=== PATIENT | male | born 1945 | race Caucasian/White ===

== ENCOUNTER 2022-05-20 12:27 | Inpatient (IN) | payer OTHER ==
[~2022-05-20] VITALS: Ht 190.5 cm; Wt 155.5 kg
[2022-05-20 13:45] LABS: BASOPHILS ABSOLUTE AUTO 0.03 K/mm3 (0.00-0.23); BASOPHILS PERCENT AUTO 0 % (0-2); EOSINOPHILS PERCENT AUTO 0 % (0-6); Hematocrit 40.7 % (37.0-53.0); Hemoglobin 13.7 g/dL (13.5-17.5); IMMATURE GRAN ABSOLUTE AUTO 0.05 K/mm3 (0.00-0.10); IMMATURE GRAN PERCENT AUTO 0 % (0-1); LYMPHOCYTES ABSOLUTE AUTO 0.43 K/mm3 (0.84-5.20); LYMPHOCYTES PERCENT AUTO 4 % (21-46); MONOCYTES ABSOLUTE AUTO 0.41 K/mm3 (0.16-1.47); MONOCYTES PERCENT AUTO 3 % (4-13); Mean Corpuscular HGB Conc 33.7 g/dL (31.5-36.5); Mean Corpuscular Volume 101 fL (80-100); Mean Platelet Volume 10.8 fL (9.1-12.4); NEUTROPHILS ABSOLUTE AUTO 11.15 K/mm3 (1.96-9.15); NEUTROPHILS PERCENT AUTO 92 % (41-73); Platelet Count 197 K/mm3 (150-400); RDW Coefficient Variation 15.9 % (11.7-14.2); RDW Standard Deviation 59.2 fL (35.1-46.3); Red Blood Cell Count 4.03 M/mm3 (4.30-5.90); White Blood Cell Count 12.07 K/mm3 (4.00-11.30)
[2022-05-20] MEDS ORDERED: ATOR40TA PO (14:38)
[2022-05-20] MEDS ORDERED: METO25ER PO (14:38)
[2022-05-20] MEDS ORDERED: FURO40 PO (14:38)
[2022-05-20] MEDS ORDERED: Hair, Skin & N1 EACH PO (14:38)
[2022-05-20] MEDS ORDERED: ALBU90OI INH (14:39)
[2022-05-20] MEDS ORDERED: ELIQUIS5 M2 PO (14:39)
[2022-05-20] MEDS ORDERED: METF500 PO (14:39)
[2022-05-20 15:05] LABS: Albumin, Blood 2.6 g/dL (3.4-5.0); Albumin/Globulin Ratio 0.6 (0.8-1.8); Bilirubin, Total 7.7 mg/dL (0.1-1.0); Bun/Creatinine Ratio 21.9 (12.0-20.0); Calcium, Blood 8.9 mg/dL (8.5-10.1); Creatinine, Blood 2.65 mg/dL (0.60-1.20); Globulin, Blood 4.4 g/dL (2.2-4.0); Potassium, Blood 4.8 mmol/L (3.5-5.5)
[2022-05-20 15:24] LABS: Creatine Kinase MB 26.1 ng/mL (0.0-3.6); Creatine Kinase MB Index 1.5 (0.0-4.0)
[2022-05-20 23:51] LABS: Albumin, Blood 2.3 g/dL (3.4-5.0); Anion Gap 12 mmol/L (6-16); Blood Urea Nitrogen 64 mg/dL (8-24); Bun/Creatinine Ratio 25.9 (12.0-20.0); CO2, Blood 21 mmol/L (21-32); Calcium, Blood 8.8 mg/dL (8.5-10.1); Chloride, Blood 103 mmol/L (98-108); Creatinine, Blood 2.47 mg/dL (0.60-1.20); Glomerular Filtration Rate 26 (60-); Glucose, Blood 144 mg/dL (70-99); Phosphorus, Blood 3.1 mg/dL (2.5-4.9); Potassium, Blood 4.3 mmol/L (3.5-5.5); Sodium, Blood 136 mmol/L (136-145)
[2022-05-21 04:09] LABS: Source, Urine Clean Catch
[2022-05-21 04:15] LABS: Blood, Urine 4+ (Neg); Glucose Qualitative, Urine Neg (Neg); Ketones, Urine 1+ (Neg); Leukocyte Esterase, Urine 1+ (Neg); Nitrite, Urine Neg (Neg); Protein, Urine 2+ (Neg); Urobilinogen, Urine 3+ (Normal)
--- NOTE | 2022-05-21 04:32 | NUR ---
CONTACTED THE HOSPITALIST REGARDING PT'S CONTINUED LOW BP WITH MOST RECENT MANUAL AT 76/50. NO SIGNIFICANT CHANGE IN PATIENT MENTATION AT THIS TIME. HOSPITALIST PUT IN ORDERS FOR 500 CC BOLUS. INFORMED OF PT'S HISTORY. TELEPHONE ORDER OBTAINED FOR ANOTHER 500 CC WITH NO IMPROVEMENT IN BP.
[2022-05-21 04:37] LABS: Appearance, Urine Hazy (Clear); Bilirubin, Urine 1+ (Neg); Color, Urine Amber (P-Yellow)
[2022-05-21 04:38] LABS: Amorphous Light (0-Heavy); Bacteria Few /hpf; Squamous Epithelial Cells Few /hpf (Few)
--- NOTE | 2022-05-21 04:56 | NUR ---
REPORT TO ADAM IN PCU. PT TRANSFERRED BY HOSPITAL BED BY RN AND [employer] ELECTRICAL ENGINEER. PT SLID TO PCU BED.
[2022-05-21 05:23] LABS: BASOPHILS ABSOLUTE AUTO 0.04 K/mm3 (0.00-0.23); BASOPHILS PERCENT AUTO 0 % (0-2); EOSINOPHILS ABSOLUTE AUTO 0.02 K/mm3 (0.00-0.68); EOSINOPHILS PERCENT AUTO 0 % (0-6); Hematocrit 36.4 % (37.0-53.0); Hemoglobin 12.5 g/dL (13.5-17.5); IMMATURE GRAN ABSOLUTE AUTO 0.05 K/mm3 (0.00-0.10); IMMATURE GRAN PERCENT AUTO 1 % (0-1); LYMPHOCYTES ABSOLUTE AUTO 0.39 K/mm3 (0.84-5.20); LYMPHOCYTES PERCENT AUTO 4 % (21-46); MONOCYTES ABSOLUTE AUTO 0.25 K/mm3 (0.16-1.47); MONOCYTES PERCENT AUTO 3 % (4-13); Mean Corpuscular HGB 33.9 pg (26.0-34.0); Mean Corpuscular HGB Conc 34.3 g/dL (31.5-36.5); Mean Corpuscular Volume 99 fL (80-100); Mean Platelet Volume 10.6 fL (9.1-12.4); NEUTROPHILS ABSOLUTE AUTO 9.16 K/mm3 (1.96-9.15); NEUTROPHILS PERCENT AUTO 93 % (41-73); Platelet Count 168 K/mm3 (150-400); RDW Coefficient Variation 15.7 % (11.7-14.2); RDW Standard Deviation 56.8 fL (35.1-46.3); Red Blood Cell Count 3.69 M/mm3 (4.30-5.90); White Blood Cell Count 9.91 K/mm3 (4.00-11.30)
[2022-05-21 05:44] LABS: Calcium, Blood 8.5 mg/dL (8.5-10.1); Creatinine, Blood 2.36 mg/dL (0.60-1.20); Potassium, Blood 4.2 mmol/L (3.5-5.5)
--- NOTE | 2022-05-21 06:30 | NUR ---
SHIFT SUMMARY/TRANSFER PT TO ROOM WITH JON Seay RN. AXO. BP STABLE, SOMEWHAT SOFT. PT FINISHING FIRST 500ML BOLUS. IV BLOWN WITH HEMATOMA TO SITE, UNKNOWN HOW LONG. IV PULLED. NEW ONE INSERTED. PT ON RA. LUNGS CLEAR T/O. TELE SHOWS AFIB, BBB, PVC'S. BED BATH GIVEN. PT WITH BRUISING T/O BODY AND MULTIPLE WOUNDS, PICTURES TO CHART. WOUNDS CLEANSED. 2ND NS BOLUS STARTED AT 500MLS/HR DUE TO RISING BP AND PT'S BNP. OTHERWISE, PT RESTING. JON Seay TO FINISH ADMISSION PROCESS. BED ALARM ON. PT ORIENTED TO PCU ROOM AND PROCEDURES.
[2022-05-21] MEDS ORDERED: LOSA50 PO ×2 (16:04→16:05)
--- NOTE | 2022-05-21 17:42 | NUR ---
SHIFT SUMMARY PT A/O X4 ND COOPERATIVE OF CARE. BP'S SOFT WITH SYSTOLIC PRESSURE RANGING 80-100'S. OTHER VSS THROUGHOUT SHIFT WITH O2 SATS >96% ON RA. NO REPORT OF CHEST PAIN/PRESSURE THROUGHOUT SHIFT. NO REPORT OF SOB/DYSPNEA THROUGHOUT SHIFT. PT SEEN BY PT/OT, PT STOOD UP AT THE BEDSIDE WITH PT/OT AND THIS RN PRESENT FOR ASSISTANCE, EDUARDO ELLSWORTH. PT STOOD FOR A FEW MINUTES BEFORE BECOMING TIRED AND SITTING ON HIS OWN ON EDGE OF BED. PT REORTS "I FELL SO MUCH BETTER TODAY. YESTERDAY I COULD NOT FOCUS AND READ WHAT IS ON THE BOARD." MEDICATION LIST AND [facility], DOCUMENTS IN CHART.
--- NOTE | 2022-05-21 21:49 | NUR ---
CARE ASSUMPTION: BEDSIDE REPORT GIVEN BY DOUGLAS FERRARA. PATIENT A&O X4, MAP >65, AND O2 >95% RA. ALBUMIN INFUSING TO LEFT FOREARM IV. PATIENT PLEASANT AND COOPERATIVE, DENIED SOB, CHEST PAIN, OR OTHER DISCOMFORT. PATIENT STATED HE WAS STILL WORKING ON DINNER BUT "PROBABLY WON'T EAT THE ZUCCHINI." PATIENT HAD 17 SEC VTACH RUN AT 2020. BED LOW WITH CALL LIGHT IN REACH.
[2022-05-22 04:15] LABS: BASOPHILS ABSOLUTE AUTO 0.04 K/mm3 (0.00-0.23); BASOPHILS PERCENT AUTO 1 % (0-2); EOSINOPHILS PERCENT AUTO 0 % (0-6); Hematocrit 36.2 % (37.0-53.0); Hemoglobin 12.4 g/dL (13.5-17.5); IMMATURE GRAN ABSOLUTE AUTO 0.04 K/mm3 (0.00-0.10); IMMATURE GRAN PERCENT AUTO 1 % (0-1); LYMPHOCYTES ABSOLUTE AUTO 0.52 K/mm3 (0.84-5.20); LYMPHOCYTES PERCENT AUTO 6 % (21-46); MONOCYTES ABSOLUTE AUTO 0.24 K/mm3 (0.16-1.47); MONOCYTES PERCENT AUTO 3 % (4-13); Mean Corpuscular HGB 33.6 pg (26.0-34.0); Mean Corpuscular HGB Conc 34.3 g/dL (31.5-36.5); Mean Corpuscular Volume 98 fL (80-100); Mean Platelet Volume 10.5 fL (9.1-12.4); NEUTROPHILS ABSOLUTE AUTO 7.34 K/mm3 (1.96-9.15); NEUTROPHILS PERCENT AUTO 90 % (41-73); Platelet Count 173 K/mm3 (150-400); RDW Coefficient Variation 15.8 % (11.7-14.2); RDW Standard Deviation 56.5 fL (35.1-46.3); Red Blood Cell Count 3.69 M/mm3 (4.30-5.90); White Blood Cell Count 8.18 K/mm3 (4.00-11.30)
[2022-05-22 04:34] LABS: Albumin, Blood 2.4 g/dL (3.4-5.0); Albumin/Globulin Ratio 0.6 (0.8-1.8); Bilirubin, Total 7.5 mg/dL (0.1-1.0); Bun/Creatinine Ratio 33.2 (12.0-20.0); Calcium, Blood 8.6 mg/dL (8.5-10.1); Creatinine, Blood 2.17 mg/dL (0.60-1.20); Globulin, Blood 3.8 g/dL (2.2-4.0); Magnesium, Blood 2.4 mg/dL (1.6-2.4); Total Protein, Blood 6.2 g/dL (6.4-8.2)
--- NOTE | 2022-05-22 05:02 | NUR ---
SHIFT SUMMARY: PATIENT A&O X4, BP SOFT, MAP >60, O2 SAT >97% RA/CPAP. DENIES CHEST PAIN, SOB, N/V/D. PATIENT HAD 17 SEC RUN OF VTACH - ASYMPTOMATIC. PATIENT STATES FEELING "MUCH BETTER" TODAY WITH IMPROVED ROM IN NECK AND ARMS AND "CAN SEE THE BOARD TODAY." PATIENT PLEASANT AND COOPERATIVE WITH CARE. DECLINES ELEVATING LEGS ON PILLOW. EXTREMETIES ARE STILL EDEMATOUS AND PATIENT REPORTS PAIN WHEN MOVING RIGHT LEG FOR REPOSITIONING BUT OTHERWISE DENIES PAIN. BED LOW WITH CALL LIGHT IN REACH. WILL CONTINUE TO MONITOR AND REPORT TO ONCOMING RN.
[2022-05-22 09:05] LABS: International Normalized Ratio 1.81; Prothrombin Time Results 18.3 Sec (9.7-11.5)
--- NOTE | 2022-05-22 18:33 | NUR ---
SHIFT SUMMARY PT A/O AND COOPERATIVE OF CARE. PT BP'S SOFT WITH SYSTOLIC PRESSURES IN THE 90-100'S. OTHER VSS THROUGHOUT SHIFT WOTH O2 SATS > 97% ON RA. PT BLOOD SUGAR LEVELS GRADUALLY INCREASED THROUGHOUT SHIFT, DR SYKES AND LOW SLIDING SCALE OREDERED. PT REPORTED FEELING "PRETTY WELL" DURING MORNING ASSESSMENT, REPORTS "FEELING WORSE THAN I DID YESTERDAY," TOWARDS END OF SHIFT. WHEN ASKED WHAT IS MAKING HIM FEEL WORSE, PT ANSWERED "MY LOWER BACK IS HURTING ME." PAIN TREATED PER EMAR. NO REPORT OF CHEST PAIN/PRESSURE THOUGHOUT SHIFT. NO REORT OF SOB/DYSPNEA THROUGHOUT SHIFT. PT EXPRESSED CONCERNS OF URINATING IN HIS BED DUE TO LASIX, WILL FORWARD TO NOC RN. LAB REPORTED PT BLOODWORK WAS POSITIVE FOR GRAM + COCCI IN CLUSTERS, DR SYKES, [facility].
--- NOTE | 2022-05-22 19:45 | NUR ---
CARE ASSUMPTION: PATIENT IN BED WITH LEGS ON PILLOWS. RLE MORE SWOLLEN THAN THIS AM AND PATIENT REPORTS PAIN IN BACK THAT ISN'T RELIEVED WITH TYLENOL. LLE HAS NEW BLISTERING. NEW ORDERS FOR LASIX AND GUERRA CATHETER. RECEIVED REPORT FROM DOUGLAS FERRARA. BED LOW WITH CALL LIGHT IN REACH.
[2022-05-22 22:56] LABS: Source, Urine Foley catheter
[2022-05-22 23:06] LABS: Blood, Urine 1+ (Neg); Glucose Qualitative, Urine Neg (Neg); Ketones, Urine 1+ (Neg); Leukocyte Esterase, Urine 1+ (Neg); Nitrite, Urine Neg (Neg); Protein, Urine 2+ (Neg); Specific Gravity, Urine 1.015 (1.003-1.022); Urobilinogen, Urine 3+ (Normal)
[2022-05-22 23:15] LABS: Bilirubin, Urine 2+ (Neg)
[2022-05-22 23:16] LABS: Appearance, Urine Hazy (Clear); Color, Urine Amber (P-Yellow)
[2022-05-22 23:17] LABS: Amorphous Mod (0-Heavy); Bacteria Few /hpf; Red Blood Cells, Urine 0-2 /hpf (0-2); Squamous Epithelial Cells Rare /hpf (Few)
[2022-05-23 04:28] LABS: BASOPHILS ABSOLUTE AUTO 0.02 K/mm3 (0.00-0.23); BASOPHILS PERCENT AUTO 0 % (0-2); EOSINOPHILS ABSOLUTE AUTO 0.05 K/mm3 (0.00-0.68); EOSINOPHILS PERCENT AUTO 1 % (0-6); Hematocrit 32.3 % (37.0-53.0); Hemoglobin 11.3 g/dL (13.5-17.5); IMMATURE GRAN ABSOLUTE AUTO 0.09 K/mm3 (0.00-0.10); IMMATURE GRAN PERCENT AUTO 1 % (0-1); LYMPHOCYTES ABSOLUTE AUTO 0.56 K/mm3 (0.84-5.20); LYMPHOCYTES PERCENT AUTO 7 % (21-46); MONOCYTES ABSOLUTE AUTO 0.31 K/mm3 (0.16-1.47); MONOCYTES PERCENT AUTO 4 % (4-13); Mean Corpuscular HGB 33.7 pg (26.0-34.0); Mean Corpuscular Volume 96 fL (80-100); Mean Platelet Volume 10.7 fL (9.1-12.4); NEUTROPHILS ABSOLUTE AUTO 7.47 K/mm3 (1.96-9.15); NEUTROPHILS PERCENT AUTO 88 % (41-73); Platelet Count 146 K/mm3 (150-400); RDW Coefficient Variation 15.2 % (11.7-14.2); Red Blood Cell Count 3.35 M/mm3 (4.30-5.90)
[2022-05-23 04:49] LABS: Albumin, Blood 2.4 g/dL (3.4-5.0); Albumin/Globulin Ratio 0.7 (0.8-1.8); Bilirubin, Total 7.5 mg/dL (0.1-1.0); Bun/Creatinine Ratio 38.9 (12.0-20.0); Calcium, Blood 8.5 mg/dL (8.5-10.1); Creatinine, Blood 2.11 mg/dL (0.60-1.20); Globulin, Blood 3.5 g/dL (2.2-4.0); Potassium, Blood 3.8 mmol/L (3.5-5.5); Total Protein, Blood 5.9 g/dL (6.4-8.2)
--- NOTE | 2022-05-23 05:30 | NUR ---
SHIFT SUMMARY: PATIENT DENIES SOB, CHEST PAIN, N/V/D. SYSTOLIC BP 90S, MAP>65, AFEBRILE. O2 SATS >92% RA. GUERRA DRAINING BRETT URINE TO GRAVITY. MEDICATED PER EMAR. PATIENT HAD ASYMPTOMATIC 18 SEC RUN OF VTACH WHILE SLEEPING ~2200. NO OTHER ADVERSE EVENTS. PATIENT DECLINED CPAP WHILE SLEEPING. PATIENT ALSO DECLINED MOVING TO RECLINER OR HAVING LEGS ELEVATED WITH PILLOWS. PATIENT PLEASANT AND COOPERATIVE WITH CARE. BED LOW WITH CALL LIGHT IN PLACE. WILL CONTINUE TO MONITOR AND REPORT TO ONCOMING RN.
[2022-05-23 13:09] LABS: Magnesium, Blood 2.5 mg/dL (1.6-2.4)
--- NOTE | 2022-05-23 18:06 | NUR ---
SHIFT SUMMARY PT A/O X3-4, SOME CONFUSION AT TIMES. PT COOPERATIVE OF CARE AND CALLED APPROPIATE. BP'S SOFT DUING SHIFT WITH SBP RANGING 90-100'S. MIDODRINE AND METOPROLOL ADJUSTED, SEE EMAR. OTHER VSS THROUGHOUT SHIFT WITH O2 SATS IN THE 90'S ON RA. NO REPORT OF CHEST PAIN/PRESSURE THROUGHOUT SHIFT. PT REPORTED SOB WHEN TRYING TO AMBULATE WITH PHYSICAL THERAPY, SATS STABLE. PT REPORTED THAT HE "FEELS GOOD TODAY" BUT WAS UNABLE TO STAND AT BEDSIDE TODAY WITH THERAPY. GUERRA IN PLACE DRAINING TO GRAVITY, DARL BRETT URINE. PT HAD X-RAY DONE ON RIGHT SHOULDER AND RIGHT KNEE, SEE CHARTS.
--- NOTE | 2022-05-23 19:56 | NUR ---
ASSUMED CARE OF PATIENT AT APPROXIMATELY 1905 FROM ALEM Ortiz RN. PATIENT DROWSY; WAKES TO VERBAL STIMULUS; DINNER TRAY PARTIALLY EATEN AND PATIENT REPORTS HE IS SLOW EATER AND STILL WORKING ON IT. PATIENT SNORING WITH EYES CLOSED WHEN STAFF NOT IN ROOM. BEDREST; Q2H TURNS. PATIENT WEAK. AFIB ON TELE; BP SOFT AT TIMES PER REPORT. OXYGEN SATURATION ABOVE 90% ON ROOM AIR. PIV S/L. SMALL AMOUNT OF DARK BRETT URINE NOTED IN CATHETER BAG.
[2022-05-24 00:07] LABS: HBSAG SCREEN Negative (Negative); HCV AB <0.1 (0.0-0.9); HEP A AB, IGM Negative (Negative); HEP B CORE AB, IGM Negative (Negative)
[2022-05-24 04:10] LABS: BASOPHILS ABSOLUTE AUTO 0.03 K/mm3 (0.00-0.23); BASOPHILS PERCENT AUTO 0 % (0-2); EOSINOPHILS ABSOLUTE AUTO 0.11 K/mm3 (0.00-0.68); EOSINOPHILS PERCENT AUTO 1 % (0-6); Hematocrit 32.1 % (37.0-53.0); Hemoglobin 11.3 g/dL (13.5-17.5); IMMATURE GRAN ABSOLUTE AUTO 0.29 K/mm3 (0.00-0.10); IMMATURE GRAN PERCENT AUTO 3 % (0-1); LYMPHOCYTES ABSOLUTE AUTO 0.87 K/mm3 (0.84-5.20); LYMPHOCYTES PERCENT AUTO 8 % (21-46); MONOCYTES ABSOLUTE AUTO 0.53 K/mm3 (0.16-1.47); MONOCYTES PERCENT AUTO 5 % (4-13); Mean Corpuscular HGB 33.9 pg (26.0-34.0); Mean Corpuscular HGB Conc 35.2 g/dL (31.5-36.5); Mean Corpuscular Volume 96 fL (80-100); Mean Platelet Volume 10.6 fL (9.1-12.4); NEUTROPHILS ABSOLUTE AUTO 8.71 K/mm3 (1.96-9.15); NEUTROPHILS PERCENT AUTO 83 % (41-73); NRBC ABSOLUTE 0.02 K/mm3 (0.00-0.02); NRBC Auto 0.2 /100 WBC (0.0-0.2); Platelet Count 163 K/mm3 (150-400); RDW Coefficient Variation 15.3 % (11.7-14.2); Red Blood Cell Count 3.33 M/mm3 (4.30-5.90); White Blood Cell Count 10.54 K/mm3 (4.00-11.30)
[2022-05-24 05:02] LABS: Albumin, Blood 2.5 g/dL (3.4-5.0); Albumin/Globulin Ratio 0.9 (0.8-1.8); Bilirubin, Total 9.3 mg/dL (0.1-1.0); Bun/Creatinine Ratio 41.7 (12.0-20.0); Calcium, Blood 8.3 mg/dL (8.5-10.1); Creatinine, Blood 2.11 mg/dL (0.60-1.20); Globulin, Blood 2.8 g/dL (2.2-4.0); Potassium, Blood 4.2 mmol/L (3.5-5.5); Total Protein, Blood 5.3 g/dL (6.4-8.2)
--- NOTE | 2022-05-24 06:34 | NUR ---
PATIENT MOVED FROM [facility] TO [facility] AROUND 0100 FOR CEILING LIFT. PATIENT SLEPT ABOUT NINE HOURS LAST NIGHT; FOUR HOURS WITH CPAP IN PLACE. PATIENT COMPLAINED OF RIGHT HIP PAIN FROM FALL AT HOME; MEDICATED PER EMAR AND WARM BLANKET GIVEN WITH GOOD RESULTS. PATIENT OCCASIONALLY MOANS OUT. NO OTHER ACUTE CHANGES TO REPORT.
[2022-05-24 09:28] LABS: Percent Saturation 43.3 % (20.0-50.0)
--- NOTE | 2022-05-24 17:03 | NUR ---
SHIFT SUMMARY PT A/O X3 AND APPEARS TO BE VERY WEAK. HE HAS DIFFICULTY MOVING EXTREMITIES AND REQUIRES Q2 TURNS. PT FREQUENTLY MOANS WITH PAIN BUT DENIES NEED FOR PAIN MEDICATION. TREATED FOR PAIN X1. NEPHROLOGY CONSULTED AND PT PLACED ON 1000 ML FLUID RESTRICTION AND [address]. INCREASED PVC'S ON TELE BUT NO VTACH. VSS. WILL REPORT TO ARUN COLE.
--- NOTE | 2022-05-25 01:38 | NUR ---
HOSPITALIST NOTIFIED PT C/O CONTINUOUS PAIN UNRELIEVED BY PO NORCO 5/325 & FREQUENT RE-POSITIONING. HOSPITALIST HAS CHANGED THE NORCO DOSE FROM 1 5/325 TAB Q4 TO 1 325 TAB Q4.
[2022-05-25 04:36] LABS: Hematocrit 29.4 % (37.0-53.0); Hemoglobin 10.7 g/dL (13.5-17.5)
[2022-05-25 04:55] LABS: Albumin, Blood 2.5 g/dL (3.4-5.0); Albumin/Globulin Ratio 0.8 (0.8-1.8); Bilirubin, Total 11.4 mg/dL (0.1-1.0); Bun/Creatinine Ratio 43.8 (12.0-20.0); Calcium, Blood 8.8 mg/dL (8.5-10.1); Creatinine, Blood 2.19 mg/dL (0.60-1.20); Globulin, Blood 3.3 g/dL (2.2-4.0); Magnesium, Blood 2.4 mg/dL (1.6-2.4); Phosphorus, Blood 2.9 mg/dL (2.5-4.9); Potassium, Blood 4.2 mmol/L (3.5-5.5); Total Protein, Blood 5.8 g/dL (6.4-8.2)
--- NOTE | 2022-05-25 06:42 | NUR ---
SUMMARY PT REMAINS A&O X3, ON RA/CPAP WHILE SLEEPING. PT HAS BEEN RESTING COMFRTABLY SINCE HIS PAIN MEDICATION WAS CHANGED TO NORCO 10/325. Q2 REPOSITIONING AND A HEATING PAD PROVIDED, PT ALSO ENC TO DO ROM EXERCISE IN BED. 240 ML'S INTAKE THROUGH THE SHIFT, 525 ML'S BRETT URINE NOTED IN GUERRA, ICE MAINTAINED FOR 24 HR URINE COLLECTION. DRSG TO RFA CHANGED, NO OTHER ACUTE CHANGES NOTED, WCTM & REPORT TO DAY RN. CALL LIGHT IN REACH
[2022-05-25 08:09] LABS: CERULOPLASMIN 29.9 mg/dL (16.0-31.0)
[2022-05-25 10:01] LABS: Thyroid Stimulating Hormone 2.58 uIU/mL (0.360-4.800)
--- NOTE | 2022-05-25 10:56 | NUR ---
CARE ASSUMPTION THIS RN ASSUMED CARE AT 0700 FROM SYLWIA COLE. VSS. TELE AFIB/PVC 80S. PATIENT IS ALERT BUT DROWSY THIS AM. PATIENT STATED "I FEEL GOOFY THIS MORNING". PATIENT IS ORIENTED X4. PERRLA. PATIENT REPORTS NO PAIN THIS AM. PATIENT REPORTS NO SHORTNESS OF BREATH THIS AM AND CLEAR LUNG SOUNDS. PATIENT REPROTS NO CHEST PAIN/PRESSURE. EDEMA +4 LOWER EXTREMITIES THAT IS WEEPING, EDEMA UPPER EXTREMITIES +3 THAT IS WEEPING. PATIENT SKIN HAS SCATTRED BRUSIING AND TEARS FROM FALL AT HOME, SEE SHIFT ASSESSMENT SKIN SECTION. ABD IS DISTENDED WHICH PATIENT STATES IS NORMAL. GUERRA CATH IN PLACE DRAINING WITH GRAVITY BRETT COLORATION. PATIENT RECEIVED BUMUX THIS AM, SEE EMAR. PATIENT SKIN FACE, CHEST, ARMS AND ABD HAS YELLOW COLORATION IN APPERANCE. SEE SHIFT ASSESSMENT FRO FURTHER DETIALS. PATIENT REPOSITIONING EVERY TWO HOURS. PATIENT DID OWN AM CARE AFTER BRINGING IT TO HIS BEDSIDE TABLE. PATIENT CALLS APPROPRIATELY. CALL LIGHT WITHIN REACH AND BED IN LOWEST POSITION. PLAN OF CARE UP TO DATE.
[2022-05-25 13:34] LABS: Protein, Urine Quantitative 38.8 mg/dL (0.0-11.9)
[2022-05-25 16:07] LABS: T-TRANSGLUTAMINASE (TTG) IGA <2 U/mL (0-3)
--- NOTE | 2022-05-25 16:59 | NUR ---
SHIFT SUMMARY PATIENT HAS BECOME MORE DROWSY THROUGHOUT THE SHIFT AND MORE JAUNDICE APPERANCE. PATIENT HAS STATED "FEELING FUNNY AND MORE WEAK". THIS RN CALLED MD LAMBERT AND STAT LAB ORDERS, ORDERED. PENDING RESULTS. OTHERWISE NO CHANGES THIS SHIFT. PATIENT CALL LIGHT WITHIN REACH. REPOSITIONING EVERY TWO HOURS. GUERRA CATH IN PLACE DRAINING WITH GRAVITY. WILL CONTINUE TO MONITOR AND PROVIDE CARE UNTIL HAND OFF WITH NEXT SHIFT.
[2022-05-25 17:09] LABS: Albumin, Blood 2.5 g/dL (3.4-5.0); Albumin/Globulin Ratio 0.7 (0.8-1.8); Bilirubin, Total 12.5 mg/dL (0.1-1.0); Bun/Creatinine Ratio 46.9 (12.0-20.0); Calcium, Blood 9.4 mg/dL (8.5-10.1); Creatinine, Blood 2.26 mg/dL (0.60-1.20); Globulin, Blood 3.7 g/dL (2.2-4.0); Potassium, Blood 4.4 mmol/L (3.5-5.5); Total Protein, Blood 6.2 g/dL (6.4-8.2)
[2022-05-25 18:24] LABS: Hematocrit 30.1 % (37.0-53.0); Hemoglobin 10.9 g/dL (13.5-17.5); Mean Corpuscular HGB 34.2 pg (26.0-34.0); Mean Corpuscular HGB Conc 36.2 g/dL (31.5-36.5); Mean Corpuscular Volume 94 fL (80-100); Mean Platelet Volume 10.7 fL (9.1-12.4); NRBC ABSOLUTE 0.03 K/mm3 (0.00-0.02); NRBC Auto 0.2 /100 WBC (0.0-0.2); Platelet Count 185 K/mm3 (150-400); RDW Coefficient Variation 15.4 % (11.7-14.2); RDW Standard Deviation 52.6 fL (35.1-46.3); Red Blood Cell Count 3.19 M/mm3 (4.30-5.90); White Blood Cell Count 15.19 K/mm3 (4.00-11.30)
[2022-05-25 19:09] LABS: BAND PERCENT MAN 6 % (0-8); BASOPHILS PERCENT MAN 0 % (0-2); EOSINOPHILS ABSOLUTE MAN 0.15 K/mm3 (0.00-0.68); EOSINOPHILS PERCENT MAN 1 % (0-6); LYMPHOCYTES ABSOLUTE MAN 1.51 K/mm3 (0.84-5.20); LYMPHOCYTES PERCENT MAN 10 % (21-46); METAMYELOCYTE ABSOLUTE MAN 0.45 K/mm3 (0.00-0.00); METAMYELOCYTE PERCENT MAN 3 % (0-0); MONOCYTES ABSOLUTE MAN 0.75 K/mm3 (0.16-1.47); MONOCYTES PERCENT MAN 5 % (4-13); MYELOCYTE ABSOLUTE MAN 0.45 K/mm3 (0.00-0.00); MYELOCYTE PERCENT MAN 3 % (0-0); NEUTROPHILS ABSOLUTE MAN 11.84 K/mm3 (1.96-9.15); SEG NEUTROPHILS PERCENT MAN 72 % (41-73); TOTAL CELLS COUNTED 100
[2022-05-26 03:54] LABS: Hemoglobin 11.1 g/dL (13.5-17.5); Mean Corpuscular HGB 34.2 pg (26.0-34.0); Mean Corpuscular HGB Conc 35.8 g/dL (31.5-36.5); Mean Corpuscular Volume 95 fL (80-100); Mean Platelet Volume 10.3 fL (9.1-12.4); NRBC ABSOLUTE 0.03 K/mm3 (0.00-0.02); NRBC Auto 0.2 /100 WBC (0.0-0.2); Platelet Count 196 K/mm3 (150-400); RDW Coefficient Variation 15.5 % (11.7-14.2); RDW Standard Deviation 53.9 fL (35.1-46.3); Red Blood Cell Count 3.25 M/mm3 (4.30-5.90); White Blood Cell Count 16.46 K/mm3 (4.00-11.30)
[2022-05-26 04:09] LABS: Albumin, Blood 2.3 g/dL (3.4-5.0); Anion Gap 11 mmol/L (6-16); Blood Urea Nitrogen 112 mg/dL (8-24); Bun/Creatinine Ratio 47.7 (12.0-20.0); CO2, Blood 22 mmol/L (21-32); Calcium, Blood 9.4 mg/dL (8.5-10.1); Chloride, Blood 97 mmol/L (98-108); Creatinine, Blood 2.35 mg/dL (0.60-1.20); Glomerular Filtration Rate 28 (60-); Glucose, Blood 179 mg/dL (70-99); Magnesium, Blood 2.7 mg/dL (1.6-2.4); Phosphorus, Blood 3.9 mg/dL (2.5-4.9); Potassium, Blood 4.5 mmol/L (3.5-5.5); Sodium, Blood 130 mmol/L (136-145)
[2022-05-26 04:48] LABS: BAND PERCENT MAN 2 % (0-8); BASOPHILS PERCENT MAN 0 % (0-2); EOSINOPHILS ABSOLUTE MAN 0.32 K/mm3 (0.00-0.68); EOSINOPHILS PERCENT MAN 2 % (0-6); LYMPHOCYTES ABSOLUTE MAN 1.48 K/mm3 (0.84-5.20); LYMPHOCYTES PERCENT MAN 9 % (21-46); METAMYELOCYTE ABSOLUTE MAN 0.32 K/mm3 (0.00-0.00); METAMYELOCYTE PERCENT MAN 2 % (0-0); MONOCYTES PERCENT MAN 14 % (4-13); MYELOCYTE ABSOLUTE MAN 0.16 K/mm3 (0.00-0.00); MYELOCYTE PERCENT MAN 1 % (0-0); NEUTROPHILS ABSOLUTE MAN 11.85 K/mm3 (1.96-9.15); SEG NEUTROPHILS PERCENT MAN 70 % (41-73); TOTAL CELLS COUNTED 100
--- NOTE | 2022-05-26 06:01 | NUR ---
SHIFT SUMMARY PT IS ALERT AND ORIENTED X4. VITALS ARE STABLE AND HAS BEEN ON ROOM AIR WITH SATS ABOVE 92%. HE HAS BEEN AFIB WITH A BBB AND FREQUENT BIGEM PVC'S IN THE 80-90'S. HE DENIES CHEST PAIN/PRESSURE OR SOB. HE DOES REPORT FEELING PAIN OF 9/10 ON LOW BACK AND HAS BEEN MEDICATED PER EMAR. PT IS JAUNDICE AND SEEPING THROUGH WOUNDS ON ARMS. HE IS UNABLE TO HELP REPOSITON HIMSELF. GUERRA IN PLACE AND DRAINING BRETT COLOR URINE. CALL LIGHT IS WITHIN REACH.
--- NOTE | 2022-05-26 06:56 | NUR ---
[facility] DOWN AND CHARTS/ORDERS NOT ACCESSIBLE FROM [id number] - [id number] 05/25/22
[2022-05-26 09:13] LABS: Albumin, Blood 2.3 g/dL (3.4-5.0); Albumin/Globulin Ratio 0.7 (0.8-1.8); Bilirubin, Direct 9.8 mg/dL (0.0-0.3); Bilirubin, Indirect 2.4 mg/dL (0.1-0.7); Bilirubin, Total 12.2 mg/dL (0.1-1.0); Globulin, Blood 3.4 g/dL (2.2-4.0); Total Protein, Blood 5.7 g/dL (6.4-8.2)
--- NOTE | 2022-05-26 10:22 | NUR ---
CARE ASSUMPTION THIS RN ASSUMED CARE FROM HIRO COLE AT 0700. VSS. TELE AFIB BIGEM BBB 40-80S. PATIENT IS DROWSY, BUT IS ALERT ONCE WAKING UP. PATIENT IS ORIENTED 3-4. UNABLE TO STATE DAY AND YEAR, BUT KNEW THE MONTH. PATIENT GROANS AND MOANS OFTEN AND SAYS "OH SHIT, OH BOY". PATIENT STATING HE FEELS WEAKER TODAY AND NOT CLEAR HEADED. PATIENT REPORTS NO CHEST PAIN/PRESSURE. EDEMA +3 BLE AND WEEDING. EDEMA BILATERAL HANDS +2 AND ARMS WEEPING. PATIENT ANASARCA, EDEMA IN ABD. PATEINT REPORTS NO SHORTNESS OF BREATH. DIM LUNG SOUNDS T/O BILTERALLY. PATIENT ABD IS HYPOACTIVE AND TENDER. PATIENT HAS SCATTERED BRUSIING/BLISTERS AND SCABS FROM FALL AT HOME. SKIN COLORATION IS JAUDNICE. SEE SHIFT ASSESSMENT FOR FURTHER DETAILS. MD SEGAL IN TO SEE PATIENT THIS AM. ALBUMIN CHANGED TO FOUR TIMES A DAY, LASIX DRIP STARTED, AND BUMUX DC AND STARTED ON LASIX DRIP AND LASIX 160MG FOUR TIMES A DAY. CONTINUEING TO DIURESIS PATIENT AND SEE IF THIS WILL IMPROVE OUT COMPARED TO THE BUMUX. 1 LITER FLUID RESTRICTION IN PLACE STILL. MD SEGAL DID DISCUSS THE POSSIBLITY OF DIALYSIS IF THE PATIENT DOES NOT DIURESIS WELL. MD LAMBERT INTO TO SEE PATIENT THIS AM. DISCUSSED THE PLAN OF CARE AND ORDERED A ABD CT SCAN D/T PATIENT COMPLAINING OF ABD PAIN. MD LAMBERT WENT OVER THE PATIENTS LIVER AND KIDNEY ENZYMES AND DISCUSSED DIALYSIS WITH THE PATIENT WELL AND NEXT STEPS MOVING FORWARD. DISCUSSED THAT PATIENT IS STARTED ON IV ABX D/T ELEVATED WBC AND CULTURES WERE DRAWN PRIOR TO ABX BEING STARTED. PATIENT WOULD FALL ASLEEP AT TIMES DURING CONVERSATION. PATIENT APPROVED TALKING TO FRIEND FEMI AND STATED SHE CAN MAKE DECISIONS IF HE IS UNABLE TO MAKE DECISIONS. MD LAMBERT CONTACTED FEMI. FEMI WILL BE IN LATER TODAY, WHEN SHE COMES IN THIS RN IS GOING TO HAVE PALLIATIVE CARE COME DOWN AND TALK WITH THEM ABOUT THE NEXT STEPS MOVING FORWARD. PATIENT REPOSITIONED THIS AM. PATIENT CATH CARE DONE. PATIENT AGREED TO A BED BATH THIS AFTERNOON. CALL LIGHT WITHIN REACH AND BED IN LOWEST POSITION.
[2022-05-26 11:31] LABS: Source, Urine Foley catheter
[2022-05-26 11:37] LABS: Appearance, Urine Clear (Clear); Blood, Urine 3+ (Neg); Color, Urine Amber (P-Yellow); Glucose Qualitative, Urine Neg (Neg); Ketones, Urine Neg (Neg); Leukocyte Esterase, Urine 1+ (Neg); Nitrite, Urine Neg (Neg); Protein, Urine 1+ (Neg); Specific Gravity, Urine 1.015 (1.003-1.022); Urobilinogen, Urine 2+ (Normal)
[2022-05-26 11:57] LABS: Bilirubin, Urine 2+ (Neg)
[2022-05-26 11:58] LABS: Bacteria Few /hpf; Calcium Oxalate Crystals Mod /hpf; Squamous Epithelial Cells Rare /hpf (Few)
--- NOTE | 2022-05-26 12:30 | NUR ---
Contacted early this am by pt's RN and re: request for visit today once proxy medical decision maker and friend arrived, due to pt's decreased mentation and increasing pain. Pt is currently experiencing liver, kidney and heart failure as well as extreme pain from multiple spinal compression fx, all over body aches, edema and ascites. Pt repeatedly saying, "Oh no, oh shit". It was hard for him to stop vocalizing in order to listen and receive information but he was able to make it very clear that he did not want CPR, Ventilation, shock or medications to restart his heart if found withour a pulse or if he was in respiratory failure and could not breathe on his own. He was also clear that he did not want dialysis, further procedures or even medications. When I asked if it was ok to give him medications to lessen his suffering, he stated yes. Pt confirms that friend Lucinda was his proxy/spokes person if he was unable to make decisions. Lucinda requests comfort care at this time and pt is agreeable to that. Pt's RN and Dr coughlin on my visit. Comfort care orders discussed and entered per VO. Pal Care Volunteer in later today and I will request that she visit also. Lucinda states she will remain at bedside for the afternoon. Lucinda's [id number] () and pt were close friends.
--- NOTE | 2022-05-26 13:43 | NUR ---
UPDATE PATIENT FAMILY FRIEND FEMI, WHO IS THE PATIENTS EMERGENCY CONTACT AND PERSON TO MAKE DECISIONS IF PATIENT IS NOT ABLE TO, AND PATIENT DISCUSSED WITH PALLIATIVE CARE SWITCHING TO COMFORT CARE AND CHANGING CODE STATUS TO A DNR. PATIENT WANTED TO BE FREE OF PAIN AND STATED "I AM READY TO WHEN IT IS MY TIME". TIMBO CODE STATUS CHANGED TO A DNR. PATIENT CHANGED TO COMFORT CARE. MD LAMBERT MADE AWARE OF PATIENT WISHES. MD LAMBERT CONTACTED MD SEGAL OF CHANGE OF STATUS FOR PATIENT. FENTANYL PATCH PLACED ON PATIENTS LEFT BACK SHOULDER TO HELP CONTROL PATIENTS PAIN LEVEL. FEMI AT BEDSIDE. CALL LIGHT WITHIN REACH AND BED IN LOWEST POSITION. THIS RN USED THERAPEUTIC COMMUNICATION AND ACTIVE LISTENING WHEN PROVIDING NEW INFORMATION AND EDUCATION.
--- NOTE | 2022-05-26 17:46 | NUR ---
SHIFT SUMMARY NO ACUTE CHANGES SINCE PERVIOUS NOTE. PATIENT IS RESTING COMFORTABLE. PATEINT FRIEND, FEMI, IS AT BEDSIDE. CALL LIGHT WITHIN REACH AND BED IN LOWEST POSITION.
--- NOTE | 2022-05-26 17:49 | NUR ---
BED BATH AND LINEN CHANGE PATIENT RECEIVED A BED BATH AND LINEN CHANGE THIS SHIFT.
--- NOTE | 2022-05-27 05:57 | NUR ---
SHIFT SUMMARY PT IS ALERT AT TIMES AND ORIENTED X1. HE IS CURRENTY COMFORT CARE. THERE HAVE BEEN NO ACUTE CHANGES. PT IS UNABLE TO STATE THAT HE IS IN PAIN BUT GRUNTS AND MOANS AND SAYS "OH SHIT." PT HAS BEEN MEDICATED PER ORDER AND KEPT COMFORTABLE T/O THE NIGHT. GUERRA IS IN PLACE AND DRAINING. CALL LIGHT IS WITHIN REACH.
--- NOTE | 2022-05-27 09:15 | NUR ---
Comfort care visit after case conferencing with pt's and charge attendant re: plan of care and comfort care orders. Pt had more pain t/o the night. VO per comfort care order set added for additional prn analgesic, Morphine 1-5mg IV q30min prn. Pt's duragesic patch was applied yesterday afternoon and is not fully therapeutic yet. I anticipate need for breakthru RX to decrease as the day goes on. Visit made to pt and his friend, Lucinda, at the bedside. She plans to stay with pt. She reports that pt's pain became so severe during the night that pt was requesting PAS for a brief time. Pt is sleeping and looks fairly comfortable now. He is not moaning and vocalizing non stop as he was yesterday during my visits. He has some furrowing and increased resp effort but was medicated for comfort very recently and Lucinda states he was finally able to relax and get some sleep. He did not wake during my visit. Pt did not show nonverbal indicators of restlessness or anxiety. If pt's pain is not well managed with fewer breakthru doses prn in the next 24 hours I would recommend increasing his duragesic patch dosing to 50mcg at the 48 hour haley. Pt remains communicative and able to swallow PO intake and medications when he is awake. He appears more jaundiced today and with increased extremity edema. Report on my visit and review of plan with beck tender and bedside RN done after my visit.
[2022-05-27 14:09] LABS: ACTIN (SMOOTH MUSCLE) ANTIBODY 4 Units (0-19)
--- NOTE | 2022-05-27 18:48 | NUR ---
DAY SHIFT SUMMARY PT W/INCREASING PAIN THIS AM, CALLING OUT AND RESTLESS. SUPPORT PERSON AT BEDSIDE. PRNS INCREASED BUT NOT CONSISTENTLY CONTROLLING PAIN. NOTIFIED ON-CALL PROVIDER AND PALLIATIVE CARE NURSE. FULL COMFORT CARE ORDER SET PUT IN AND INCREASE IN PAIN MEDICATION W/OPTION FOR IV PLACED BY PROVIDER. PT TOLERATED WELL AND APPEARED COMFORTABLE FOR THE REMAINDER OF THE DAY. FAMILY REMAINED AT BEDSIDE AND ENCOURAGED TO CALL WITH ANY CONCERNS AND EDUCATED ON SIGNS OF PAIN/DISCOMFORT. FAMILY DID CALL OUT FEELING IF BREATHING HAD CHANGED AND EDUCATED ON TRANSITION PROCESS. NO NOTED SECRETIONS OR STRUGGLING TO BREATH NOTED, BUT ENCOURAGED FAMILY TO CALL ONCE AGAIN IF ANY CONCERNS AROSE. ROUNDED ON PT AND FAMILY FREQUENTLY THROUGHOUT THE DAY. WILL PASS ON TO ARUN RN
--- NOTE | 2022-05-28 07:38 | NUR ---
SHIFT SUMMARY PT WAS COMFORTABLE T/O THE NIGHT AND PASSED AT 06:52. VISITOR IN ROOM WITH HIM ALL NIGHT.
--- NOTE | 2022-05-28 09:26 | NUR ---
CARE ASSUMPTION THIS RN ASSUMED CARE AT 0700 FROM HIRO COLE. PATIENT PASSED DURING NOC SHIFT AT 0652. MARKET REPORTER NICOLE WENT IN AND DISCUSSED PLANS MOVING FORWARD. MARKET REPORTER GOT IN TOUCH WITH THE [facility] PER FEMI, PATIENT FAMILY FRIEND WHO IS IN CHARGE OF PATIENTS WISHES. RAMÍREZ COLE WENT DISCUSSED CONVERSATION WITH FEMI. THIS RN WENT IN AND NOTIFED FEMI THAT WE CONTACTED SUDHAKAR OF [facility] FOR [facility]. THIS RN AND KESHAWN MEJIA WENT IN AND DID POSTMARTUM CARE AND REMVOED IVS AND CATHETER. THIS RN PROVIDED THERAPUETIC COMMUNICATION AND ACTIVE LISTENING.
--- NOTE | 2022-05-28 11:16 | NUR ---
LEFT UNIT PATIENT LEFT THE UNIT WITH SUDHAKAR [facility] WITH CADY Galicia AT APPROX 1010. ALL OF THE PATIENT BELONGINGS WERE COLLECTED AND TAKEN WITH FEMI, THE PATIENTS FRIENDS. THE PATIENTS DENTURES WENT WITH HIM TO THE HOME DUE TO THE PATIENT WISHES OF HAVING HIS TEETH IN.
[2022-05-30 21:10] LABS: ALBUMIN 2.6 g/dL (2.9-4.4); ALPHA-1-GLOBULIN 0.3 g/dL (0.0-0.4); ALPHA-2-GLOBULIN 0.7 g/dL (0.4-1.0); BETA GLOBULIN 0.7 g/dL (0.7-1.3); GLOBULIN, TOTAL 2.6 g/dL (2.2-3.9); IMMUNOGLOBULIN A, QN, SERUM 356 mg/dL (61-437); IMMUNOGLOBULIN G, QN, SERUM 1075 mg/dL (603-1613); IMMUNOGLOBULIN M, QN, SERUM 47 mg/dL (15-143); M-SPIKE 0.5 g/dL (Not Observed); PROTEIN, TOTAL, SERUM 5.2 g/dL (6.0-8.5)
== END 2022-05-28 10:14 | DRG 683 ==
LOC: ER 12:27 → ERHOLD 19:31 → PCU 19:31 → MEDS 20:59 → PCU 05-21 05:08
PROVIDERS: Family Medicine; Internal Medicine; Internal Medicine Nephrology; Student in an Organized Health Care Education/Training Program; ADMIT Internal Medicine
DX: N17.9 Acute kidney failure, unspecified (principal); E87.1 Hypo-osmolality and hyponatremia; M62.82 Rhabdomyolysis; Z68.41 Body mass index [BMI] 40.0-44.9, adult; I13.0 Hypertensive heart and chronic kidney disease with heart failure and stage 1 through stage 4 chronic kidney disease, or unspecified chronic kidney disease; I48.20 Chronic atrial fibrillation, unspecified; R65.10 Systemic inflammatory response syndrome (SIRS) of non-infectious origin without acute organ dysfunction; L03.115 Cellulitis of right lower limb; E87.2 Acidosis; Z66 Do not resuscitate; Z51.5 Encounter for palliative care; E88.09 Other disorders of plasma-protein metabolism, not elsewhere classified; D63.1 Anemia in chronic kidney disease; E66.01 Morbid (severe) obesity due to excess calories; M17.0 Bilateral primary osteoarthritis of knee; R79.89 Other specified abnormal findings of blood chemistry; M16.10 Unilateral primary osteoarthritis, unspecified hip; I50.9 Heart failure, unspecified; I95.9 Hypotension, unspecified; N18.2 Chronic kidney disease, stage 2 (mild); E11.621 Type 2 diabetes mellitus with foot ulcer; M10.9 Gout, unspecified; E11.22 Type 2 diabetes mellitus with diabetic chronic kidney disease; E78.5 Hyperlipidemia, unspecified; I34.0 Nonrheumatic mitral (valve) insufficiency; M20.42 Other hammer toe(s) (acquired), left foot; G47.33 Obstructive sleep apnea (adult) (pediatric); M20.12 Hallux valgus (acquired), left foot; M20.11 Hallux valgus (acquired), right foot; K74.60 Unspecified cirrhosis of liver; R91.1 Solitary pulmonary nodule; I87.2 Venous insufficiency (chronic) (peripheral); L84 Corns and callosities; Z86.73 Personal history of transient ischemic attack (TIA), and cerebral infarction without residual deficits; Z79.899 Other long term (current) drug therapy; Z90.49 Acquired absence of other specified parts of digestive tract; Z79.51 Long term (current) use of inhaled steroids; Z79.01 Long term (current) use of anticoagulants; Z79.4 Long term (current) use of insulin
CPT/HCPCS: 36415; 51702; 70450; 71045; 73030; 73560-RT; 74176; 76705; 80048; 80053; 80069; 80074; 80076; 81001; 82103; 82140; 82390; 82550; 82553; 82728; 82947; 82977; 83036; 83540; 83550; 83605; 83735; 83880; 84100; 84145; 84156; 84165; 84443; 84484; 85014; 85018; 85025; 85610; 86015; 86038; 86364; 86376; 86381; 87040; 87086; 93005; 93010; 93306; 93971; 94660; 94762; 96360; 96361; 97110; 97162; 97166; 97530; 99285-25; A9270; C1751; G0480; J1644; J1650; J1815; J1940; J2270; J2354; J2543; J3370; J7040; J7060; J7120; P9041; P9046; P9047